=== PATIENT | male | born 1935 | race Two or more races ===

== ENCOUNTER 2019-10-21 01:07 | Inpatient (IN) | payer OTHER ==
[~2019-10-21] VITALS: Ht 182.9 cm; Wt 107.5 kg
[2019-10-21 02:53] LABS: Basophils # (auto) 0 10 ^3/uL (0-0.2); Basophils % (auto) 0.5 % (0.0-2.0); Eosinophils # (auto) 0 10 ^3/uL (0-0.8); Hematocrit 33.7 % (41.0-53.0); Hemoglobin 11.4 g/dL (13.5-17.5); Lymphocytes # (auto) 0.7 10 ^3/uL (0.4-5.4); Lymphocytes % (auto) 9.3 % (10.0-50.0); Mean Corpuscular Hemoglobin 33.7 pg (28.0-32.0); Mean Corpuscular Hgb Conc. 33.7 g/dL (32.0-36.0); Mean Corpuscular Volume 99.9 fL (80.0-100.0); Monocytes # (auto) 0.4 10 ^3/uL (0-1.3); Monocytes % (auto) 5.7 % (0.0-12.0); Neutrophils # (auto) 6.5 10 ^3/uL (1.6-8.6); Neutrophils % (auto) 84.5 % (37.0-80.0); Nucleated Red Blood Cells % 0.1 %; Platelet Count (auto) 230 10^3/uL (140-450); Red Blood Cells 3.37 10^6/uL (4.5-5.90); Red Cell Distribution Width 19.3 % (11.8-14.3); White Blood Cell 7.7 10^3/uL (4.4-10.8)
[2019-10-21 03:04] LABS: Albumin 2.6 g/dL (3.4-5.0); Calcium 8.7 mg/dL (8.5-10.1); Potassium 3.4 mmol/L (3.5-5.1)
[2019-10-21 03:07] LABS: BUN/Creatinine Ratio 10.6; Bilirubin, Total 1.6 mg/dL (0.2-1.0); Total Protein 7.1 g/dL (6.4-8.2)
[2019-10-21 03:45] LABS: Lactic Acid w/Reflex 2.2 mmol/L (0.4-2.0)
[2019-10-21] MEDS ORDERED: SODIUM CHLORIDE 0.9% 500 ML IV ONE (04:15)
[2019-10-21 04:36] LABS: Urine Bacteria FEW /hpf (None Seen); Urine Blood Negative /uL (Negative); Urine Hyaline Cast FEW /lpf (0 - 2); Urine Specific Gravity 1.014 (1.001-1.035); Urine WBC 9 /hpf (0 - 3)
[2019-10-21] MEDS ORDERED: metroNIDAZOLE 500MG/100ML 100 ML IV ONE (04:45)
[2019-10-21] MEDS ORDERED: CIPROFLOXACIN 400MG/200ML 200 ML IV ONE (04:45)
[2019-10-21] MEDS ORDERED: MORPHINE SULFATE 4 MG/ML SYR/VIAL IV ONE (05:15)
[2019-10-21] MEDS ORDERED: ONDANSETRON HCL 4 MG/2 ML VIAL IV ONE (05:15)
[2019-10-21] MEDS ORDERED: MORPHINE SULFATE 4 MG/ML SYR/VIAL IV PRN (06:00)
[2019-10-21] MEDS: metroNIDAZOLE 500MG/100ML 100 ML IV SCH ×3 (06:00→22:27)
[2019-10-21] MEDS ORDERED: NITROGLYCERIN 0.4 MG SL TAB SL PRN (06:00)
[2019-10-21] MEDS ORDERED: MORPHINE SULF INJ 2 MG/ML SYRINGE 1ML IV PRN ×2 (06:00→08:00)
[2019-10-21] MEDS ORDERED: hydrALAZINE HCL 20 MG/ML VL IV PRN (06:00)
[2019-10-21] MEDS ORDERED: DEXTROSE (50%) 50ML SYRG IV PRN (06:00)
[2019-10-21] MEDS ORDERED: SODIUM CHLORIDE 0.9% 1,000 ML IV SCH (06:00)
[2019-10-21] MEDS ORDERED: ONDANSETRON HCL 4 MG/2 ML VIAL IV PRN (06:00)
[2019-10-21] MEDS: InsuLIN REG 1unit/0.01ml Soln (100units/ml) SC SCH ×3 (06:51→17:41)
[2019-10-21] MEDS: ACCU-CHEK COMFORT CURVE STRIP VI SCH ×3 (06:52→17:40)
[2019-10-21] MEDS ORDERED: PROMETHAZINE HCL 25 MG/ML 1ML IV ONE (07:00)
[2019-10-21] MEDS ORDERED: POTA10TA75 (08:13)
[2019-10-21] MEDS ORDERED: HYDR10TA26 (08:13)
[2019-10-21] MEDS ORDERED: GLIP2.5T28 (08:13)
[2019-10-21] MEDS ORDERED: LEV88T (08:13)
[2019-10-21] MEDS ORDERED: AMLO5TAB15 (08:13)
[2019-10-21] MEDS ORDERED: ATOR20TA50 (08:13)
[2019-10-21] MEDS ORDERED: FURO40TA4 (08:13)
[2019-10-21] MEDS ORDERED: PANT40T (08:13)
[2019-10-21] MEDS ORDERED: LACT10SO3 (08:13)
[2019-10-21 09:36] VITALS: BP 153/60
[2019-10-21] MEDS: PANTOPRAZOLE 40 MG/10 ML VIAL INJ IV SCH (10:29)
[2019-10-21] MEDS: cefTRIAXone 1GM/50ML D5W 50 ML IV SCH (10:29)
[2019-10-21] MEDS ORDERED: GASTROGRAFIN 120 ML SOL ONE (10:56)
[2019-10-21 11:37] LABS: Phosphorus 3.2 mg/dL (2.5-4.90)
[2019-10-21] MEDS: D5W/LACTATED RINGERS 1,000 ML IV SCH (13:36)
[2019-10-21 16:38] VITALS: BP 156/50
[2019-10-21] MEDS ORDERED: BISACODYL 10 MG RECT SUPP PR ONE (18:45)
[2019-10-21 21:00] VITALS: BP 150/57
[2019-10-22] MEDS: ACCU-CHEK COMFORT CURVE STRIP VI SCH ×4 (00:46→23:32)
[2019-10-22 05:00] VITALS: BP 142/56
[2019-10-22] MEDS: metroNIDAZOLE 500MG/100ML 100 ML IV SCH (05:40)
[2019-10-22] MEDS: InsuLIN REG 1unit/0.01ml Soln (100units/ml) SC SCH ×4 (05:40→23:32)
[2019-10-22] MEDS: D5W/LACTATED RINGERS 1,000 ML IV SCH (05:40)
[2019-10-22 07:54] LABS: Protein, Urine 218.5 mg/dL (0.0-11.9)
[2019-10-22 08:00] VITALS: BP 140/65
[2019-10-22 08:22] LABS: Basophils # (auto) 0 10 ^3/uL (0-0.2); Basophils % (auto) 0.2 % (0.0-2.0); Eosinophils # (auto) 0 10 ^3/uL (0-0.8); Eosinophils % (auto) 0.1 % (0.0-7.0); Hematocrit 32.3 % (41.0-53.0); Hemoglobin 10.8 g/dL (13.5-17.5); Lymphocytes # (auto) 1.3 10 ^3/uL (0.4-5.4); Lymphocytes % (auto) 15.1 % (10.0-50.0); Mean Corpuscular Hemoglobin 33.7 pg (28.0-32.0); Mean Corpuscular Hgb Conc. 33.6 g/dL (32.0-36.0); Mean Corpuscular Volume 100.3 fL (80.0-100.0); Monocytes % (auto) 11.1 % (0.0-12.0); Neutrophils # (auto) 6.4 10 ^3/uL (1.6-8.6); Neutrophils % (auto) 73.5 % (37.0-80.0); Nucleated Red Blood Cells % 0.1 %; Platelet Count (auto) 216 10^3/uL (140-450); Red Blood Cells 3.22 10^6/uL (4.5-5.90); Red Cell Distribution Width 19.5 % (11.8-14.3); White Blood Cell 8.7 10^3/uL (4.4-10.8)
[2019-10-22 08:43] LABS: INR 1.34 (0.9-1.15); Partial Thromboplastin Time 37.4 sec (23.64-32.05)
[2019-10-22 08:45] LABS: Albumin 2.5 g/dL (3.4-5.0); Calcium 8.5 mg/dL (8.5-10.1); Potassium 3.4 mmol/L (3.5-5.1)
[2019-10-22 08:49] LABS: BUN/Creatinine Ratio 10.2; Bilirubin, Total 1.2 mg/dL (0.2-1.0); Total Protein 6.8 g/dL (6.4-8.2)
[2019-10-22] MEDS: cefTRIAXone 1GM/50ML D5W 50 ML IV SCH (08:53)
[2019-10-22] MEDS: PANTOPRAZOLE 40 MG/10 ML VIAL INJ IV SCH (08:53)
[2019-10-22] MEDS ORDERED: POTASSIUM CHL 20MEQ/100ML 100 ML IV ONE (09:15)
[2019-10-22 13:00] VITALS: BP 150/70
[2019-10-22] MEDS: D5W/SOD CHL 0.45% 1,000 ML IV SCH ×2 (13:38→19:30)
[2019-10-22 17:00] VITALS: BP 143/53
[2019-10-22 21:08] VITALS: BP 158/75
[2019-10-22 23:30] VITALS: BP 167/80
[2019-10-23] VITALS (76 sets, daily range): BP systolic 86–159; BP diastolic 28–85
[2019-10-23] MEDS: D5W/SOD CHL 0.45% 1,000 ML IV SCH ×3 (03:23→19:00)
[2019-10-23] MEDS: InsuLIN REG 1unit/0.01ml Soln (100units/ml) SC SCH ×3 (05:16→18:00)
[2019-10-23] MEDS: ACCU-CHEK COMFORT CURVE STRIP VI SCH ×3 (05:17→18:08)
[2019-10-23 06:07] LABS: Albumin 2.7 g/dL (3.4-5.0); BUN/Creatinine Ratio 10.2; Calcium 8.6 mg/dL (8.5-10.1)
[2019-10-23 06:09] LABS: Bilirubin, Total 1.2 mg/dL (0.2-1.0); Total Protein 7.3 g/dL (6.4-8.2)
[2019-10-23] MEDS ORDERED: ROCURONIUM 10MG/ML 10ML VIAL IV ONE (07:20)
[2019-10-23] MEDS ORDERED: ETOMIDATE (2MG/ML) 20ML VIAL IV ONE (07:20)
[2019-10-23] MEDS ORDERED: SUCCINYLCHOLINE CHLORIDE 20 MG/ML 10ML VIAL IV ONE (07:20)
[2019-10-23] MEDS ORDERED: MIDAZOLAM HCL 5 MG/ML-1ML VIAL ONE (07:35)
[2019-10-23] MEDS ORDERED: MIDAZOLAM HCL 5 MG/ML-1ML VIAL IV ONE (07:45)
[2019-10-23] MEDS: MIDAZOLAM DRIP 50 mg/50mL 50 ML IV SCH ×3 (07:45→22:01)
[2019-10-23] MEDS ORDERED: MIDAZOLAM DRIP 50 mg/50mL 50 ML IV ONE (07:45)
[2019-10-23 09:26] LABS: Basophils # (auto) 0 10 ^3/uL (0-0.2); Eosinophils # (auto) 0 10 ^3/uL (0-0.8); Lymphocytes # (auto) 0.7 10 ^3/uL (0.4-5.4); Monocytes # (auto) 1.3 10 ^3/uL (0-1.3); Neutrophils # (auto) 7.9 10 ^3/uL (1.6-8.6)
[2019-10-23 09:27] LABS: Basophils % (auto) 0.3 % (0.0-2.0); Hematocrit 33.8 % (41.0-53.0); Hemoglobin 11.3 g/dL (13.5-17.5); Lymphocytes % (auto) 6.8 % (10.0-50.0); Mean Corpuscular Hemoglobin 33.7 pg (28.0-32.0); Mean Corpuscular Hgb Conc. 33.4 g/dL (32.0-36.0); Mean Corpuscular Volume 100.9 fL (80.0-100.0); Monocytes % (auto) 13.5 % (0.0-12.0); Neutrophils % (auto) 79.4 % (37.0-80.0); Platelet Count (auto) 234 10^3/uL (140-450); Red Blood Cells 3.35 10^6/uL (4.5-5.90); White Blood Cell 9.9 10^3/uL (4.4-10.8)
[2019-10-23 09:29] LABS: Red Cell Distribution Width 20.2 % (11.8-14.3)
[2019-10-23 09:47] LABS: Albumin 2.5 g/dL (3.4-5.0); BUN/Creatinine Ratio 9.9; Calcium 8.5 mg/dL (8.5-10.1)
[2019-10-23 09:50] LABS: Bilirubin, Total 1.2 mg/dL (0.2-1.0); Total Protein 6.7 g/dL (6.4-8.2)
[2019-10-23 09:58] LABS: Lactic Acid w/Reflex 6.7 mmol/L (0.4-2.0)
[2019-10-23] MEDS: POTASSIUM CHL 20MEQ/100ML 100 ML IV SCH ×2 (11:15→13:04)
[2019-10-23] MEDS: PANTOPRAZOLE 40 MG/10 ML VIAL INJ IV SCH (11:15)
[2019-10-23] MEDS: PROPOFOL 100 ML IV SCH ×2 (11:46→22:00)
[2019-10-23] MEDS: metroNIDAZOLE 500MG/100ML 100 ML IV SCH ×2 (13:38→21:37)
[2019-10-23] MEDS: cefTRIAXone 1GM/50ML D5W 50 ML IV SCH (13:38)
[2019-10-23] MEDS ORDERED: NEOMYCIN SULFATE 500 MG TAB PO ONE (14:00)
[2019-10-23] MEDS ORDERED: LACTULOSE 20Gm/30ML SOLN PR ONE (14:15)
[2019-10-23 14:24] LABS: INR 1.52 (0.9-1.15)
[2019-10-23] MEDS: LACTULOSE 20Gm/30ML SOLN PO SCH ×3 (15:33→21:37)
[2019-10-23] MEDS: fentaNYL Drip 2500mCg/250mlNS 250 ML IV SCH (18:08)
[2019-10-23] MEDS: NOREPINEPHRINE 8 MG/250ML KIT 250 ML IV SCH (20:46)
[2019-10-24] VITALS (100 sets, daily range): BP systolic 86–146; BP diastolic 34–53
[2019-10-24] MEDS: InsuLIN REG 1unit/0.01ml Soln (100units/ml) SC SCH ×4 (00:26→18:00)
[2019-10-24] MEDS: ACCU-CHEK COMFORT CURVE STRIP VI SCH ×4 (00:27→18:28)
[2019-10-24] MEDS: D5W/SOD CHL 0.45% 1,000 ML IV SCH ×2 (02:09→08:28)
[2019-10-24] MEDS: PROPOFOL 100 ML IV SCH ×2 (02:09→23:05)
[2019-10-24] MEDS: LACTULOSE 20Gm/30ML SOLN PO SCH ×4 (02:15→18:29)
[2019-10-24 05:11] LABS: Basophils # (auto) 0 10 ^3/uL (0-0.2); Basophils % (auto) 0.1 % (0.0-2.0); Eosinophils # (auto) 0 10 ^3/uL (0-0.8); Hematocrit 28.3 % (41.0-53.0); Monocytes % (auto) 5.5 % (0.0-12.0); Red Blood Cells 2.78 10^6/uL (4.5-5.90)
[2019-10-24 05:13] LABS: Hemoglobin 9.5 g/dL (13.5-17.5); Lymphocytes # (auto) 0.8 10 ^3/uL (0.4-5.4); Lymphocytes % (auto) 4.2 % (10.0-50.0); Mean Corpuscular Hemoglobin 34.3 pg (28.0-32.0); Mean Corpuscular Hgb Conc. 33.7 g/dL (32.0-36.0); Mean Corpuscular Volume 101.8 fL (80.0-100.0); Neutrophils # (auto) 16.9 10 ^3/uL (1.6-8.6); Neutrophils % (auto) 90.2 % (37.0-80.0); Nucleated Red Blood Cells % 0.1 %; Platelet Count (auto) 193 10^3/uL (140-450); White Blood Cell 18.8 10^3/uL (4.4-10.8)
[2019-10-24 05:18] LABS: Red Cell Distribution Width 20.9 % (11.8-14.3)
[2019-10-24 05:23] LABS: Calcium 7.6 mg/dL (8.5-10.1); Potassium 3.5 mmol/L (3.5-5.1)
[2019-10-24 05:24] LABS: Lactic Acid w/Reflex 2.2 mmol/L (0.4-2.0)
[2019-10-24 05:29] LABS: Albumin 2.2 g/dL (3.4-5.0); BUN/Creatinine Ratio 10.5; Bilirubin, Total 0.9 mg/dL (0.2-1.0); Total Protein 5.8 g/dL (6.4-8.2)
[2019-10-24] MEDS: metroNIDAZOLE 500MG/100ML 100 ML IV SCH ×3 (06:15→20:50)
[2019-10-24] MEDS: THIAMINE 100mg/ml INJ (200mg/2ml VIAL) IV SCH (09:41)
[2019-10-24] MEDS: cefTRIAXone 1GM/50ML D5W 50 ML IV SCH (09:41)
[2019-10-24] MEDS ORDERED: POTASSIUM CHL 20MEQ/100ML 200 ML IV ONE (09:58)
[2019-10-24] MEDS: PANTOPRAZOLE 40 MG/10 ML VIAL INJ IV SCH (10:13)
[2019-10-24] MEDS ORDERED: ALBUMIN 25% 100 ML IV SCH (10:30)
[2019-10-24] MEDS: MIDODRINE HCL 10 MG TAB PO SCH ×2 (12:56→17:40)
[2019-10-24] MEDS: POTASSIUM CHL 20MEQ/100ML 100 ML IV SCH ×2 (13:00→13:42)
[2019-10-24] MEDS: fentaNYL Drip 2500mCg/250mlNS 250 ML IV SCH (13:00)
[2019-10-24] MEDS ORDERED: TPN PER PHARMACY 0 ML IV SCH (14:15)
[2019-10-24] MEDS: ALBUMIN 25% 100 ML IV SCH (14:34)
[2019-10-24] MEDS: OCTREOTIDE ACETATE 100 MCG/ML VL SUBCUT SCH ×2 (14:52→20:51)
[2019-10-24] MEDS ORDERED: DEXTROSE (50%) 50ML SYRG IV SCH (18:00)
[2019-10-24] MEDS ORDERED: AMINO ACID INFUSION IN D5W 2,000 ML IV NR (20:00)
[2019-10-24] MEDS: NOREPINEPHRINE 8 MG/250ML KIT 250 ML IV SCH (20:46)
[2019-10-25] VITALS (92 sets, daily range): BP systolic 111–149; BP diastolic 37–59
[2019-10-25] MEDS: LACTULOSE 20Gm/30ML SOLN PO SCH ×3 (03:19→18:37)
[2019-10-25 04:17] LABS: Basophils # (auto) 0 10 ^3/uL (0-0.2); Eosinophils # (auto) 0 10 ^3/uL (0-0.8); Eosinophils % (auto) 0.4 % (0.0-7.0); Hemoglobin 8.6 g/dL (13.5-17.5); Neutrophils # (auto) 8.6 10 ^3/uL (1.6-8.6)
[2019-10-25 04:21] LABS: Basophils % (auto) 0.2 % (0.0-2.0); Hematocrit 25.5 % (41.0-53.0); Lymphocytes # (auto) 1.6 10 ^3/uL (0.4-5.4); Lymphocytes % (auto) 13.9 % (10.0-50.0); Mean Corpuscular Hgb Conc. 33.8 g/dL (32.0-36.0); Mean Corpuscular Volume 100.7 fL (80.0-100.0); Monocytes # (auto) 1.1 10 ^3/uL (0-1.3); Monocytes % (auto) 9.6 % (0.0-12.0); Neutrophils % (auto) 75.9 % (37.0-80.0); Platelet Count (auto) 141 10^3/uL (140-450); Red Blood Cells 2.53 10^6/uL (4.5-5.90); Red Cell Distribution Width 19.9 % (11.8-14.3); White Blood Cell 11.4 10^3/uL (4.4-10.8)
[2019-10-25 04:38] LABS: Potassium 3.3 mmol/L (3.5-5.1)
[2019-10-25 04:45] LABS: Albumin 2.3 g/dL (3.4-5.0); BUN/Creatinine Ratio 13.1; Bilirubin, Total 0.8 mg/dL (0.2-1.0); Calcium 7.8 mg/dL (8.5-10.1); Magnesium 2.1 mg/dL (1.6-2.6); Total Protein 5.6 g/dL (6.4-8.2)
[2019-10-25 04:47] LABS: Phosphorus 3.2 mg/dL (2.5-4.90)
[2019-10-25] MEDS: metroNIDAZOLE 500MG/100ML 100 ML IV SCH ×2 (05:48→16:28)
[2019-10-25] MEDS: MIDODRINE HCL 10 MG TAB PO SCH ×3 (05:49→17:41)
[2019-10-25] MEDS: OCTREOTIDE ACETATE 100 MCG/ML VL SUBCUT SCH ×2 (05:50→16:30)
[2019-10-25] MEDS: ACCU-CHEK COMFORT CURVE STRIP VI SCH ×4 (05:50→18:44)
[2019-10-25] MEDS: InsuLIN REG 1unit/0.01ml Soln (100units/ml) SC SCH ×4 (05:51→18:44)
[2019-10-25] MEDS: POTASSIUM CHL 20MEQ/100ML 100 ML IV SCH ×2 (06:00→07:45)
[2019-10-25] MEDS: MIDAZOLAM DRIP 50 mg/50mL 50 ML IV SCH (07:45)
[2019-10-25 10:56] LABS: Pre Albumin 6.6 mg/dL (20.0-40.0)
[2019-10-25] MEDS: cefTRIAXone 1GM/50ML D5W 50 ML IV SCH (11:31)
[2019-10-25] MEDS: PANTOPRAZOLE 40 MG/10 ML VIAL INJ IV SCH (11:31)
[2019-10-25] MEDS: THIAMINE 100mg/ml INJ (200mg/2ml VIAL) IV SCH (11:31)
[2019-10-25] MEDS ORDERED: FUROSEMIDE 40 MG/4 ML VIAL IV ONE (12:00)
[2019-10-25] MEDS: ALBUMIN 25% 100 ML IV SCH (16:28)
[2019-10-25] MEDS: fentaNYL Drip 2500mCg/250mlNS 250 ML IV SCH (16:58)
[2019-10-25] MEDS ORDERED: TPN PER PHARMACY IV NR ×8 (20:00)
[2019-10-25] MEDS: NOREPINEPHRINE 8 MG/250ML KIT 250 ML IV SCH (20:46)
[2019-10-26] VITALS (78 sets, daily range): BP systolic 98–157; BP diastolic 39–63
[2019-10-26] MEDS: metroNIDAZOLE 500MG/100ML 100 ML IV SCH ×2 (00:48→06:06)
[2019-10-26] MEDS: OCTREOTIDE ACETATE 100 MCG/ML VL SUBCUT SCH ×2 (00:49→06:07)
[2019-10-26] MEDS: InsuLIN REG 1unit/0.01ml Soln (100units/ml) SC SCH ×3 (00:57→12:10)
[2019-10-26] MEDS: LACTULOSE 20Gm/30ML SOLN PO SCH ×2 (02:02→10:00)
[2019-10-26 04:57] LABS: Albumin 2.6 g/dL (3.4-5.0); Calcium 8.1 mg/dL (8.5-10.1); Potassium 3.2 mmol/L (3.5-5.1)
[2019-10-26 05:00] LABS: BUN/Creatinine Ratio 16.2
[2019-10-26 05:02] LABS: Magnesium 2.3 mg/dL (1.6-2.6); Phosphorus 3.9 mg/dL (2.5-4.90)
[2019-10-26] MEDS: MIDODRINE HCL 10 MG TAB PO SCH ×2 (06:00→12:00)
[2019-10-26] MEDS: ACCU-CHEK COMFORT CURVE STRIP VI SCH ×3 (06:04→12:07)
[2019-10-26] MEDS: MIDAZOLAM DRIP 50 mg/50mL 50 ML IV SCH (07:45)
[2019-10-26] MEDS ORDERED: FUROSEMIDE 40 MG/4 ML VIAL IV ONE (09:15)
[2019-10-26] MEDS: PANTOPRAZOLE 40 MG/10 ML VIAL INJ IV SCH (09:19)
[2019-10-26] MEDS: cefTRIAXone 1GM/50ML D5W 50 ML IV SCH (09:20)
[2019-10-26] MEDS: THIAMINE 100mg/ml INJ (200mg/2ml VIAL) IV SCH (09:20)
[2019-10-26] MEDS: POTASSIUM CHL 20MEQ/100ML 100 ML IV SCH ×2 (10:04→12:00)
[2019-10-26] MEDS: PROPOFOL 100 ML IV SCH (10:39)
[2019-10-26] MEDS ORDERED: LORazepam 2MG/ML-1ML VIAL IV PRN (15:30)
[2019-10-26] MEDS: LORazepam 2MG/ML-1ML VIAL IV PRN ×2 (15:55→23:13)
[2019-10-26] MEDS: ALBUMIN 25% 100 ML IV SCH (16:28)
[2019-10-26] MEDS ORDERED: TPN PER PHARMACY IV NR ×8 (20:00)
[2019-10-26] MEDS: MORPHINE SULF INJ 2 MG/ML SYRINGE 1ML IV PRN (21:15)
[2019-10-27] MEDS: MORPHINE SULF INJ 2 MG/ML SYRINGE 1ML IV PRN (01:21)
[2019-10-27 05:00] VITALS: BP 128/62
[2019-10-27 09:01] VITALS: BP 135/56
[2019-10-27 13:00] VITALS: BP 136/54
[2019-10-27 13:47] VITALS: BP 134/54
[2019-10-27 16:17] VITALS: BP 117/52
== END 2019-10-27 17:37 | disposition hospice, home (50) | DRG 388 ==
LOC: EDBD 01:07 → ER 01:09 → TELE 01:10 → TELE-WESTW 07:51 → ICU WEST 10-23 06:55 → TELE-CENTR 10-26 22:12
PROVIDERS: ADMIT Nurse Practitioner; ATTEND Hospitalist
PROC: 02HV33Z Insertion of Infusion Device into Superior Vena Cava, Percutaneous Approach (ICD-10-PCS; principal; 2019-10-23)
PROC: B548ZZA Ultrasonography of Superior Vena Cava, Guidance (ICD-10-PCS; 2019-10-23)
PROC: 5A1945Z Respiratory Ventilation, 24-96 Consecutive Hours (ICD-10-PCS; 2019-10-23)
PROC: 0BH17EZ Insertion of Endotracheal Airway into Trachea, Via Natural or Artificial Opening (ICD-10-PCS; 2019-10-23)
DX: K56.600 Partial intestinal obstruction, unspecified as to cause (principal); J96.01 Acute respiratory failure with hypoxia; K76.7 Hepatorenal syndrome; G93.41 Metabolic encephalopathy; G93.6 Cerebral edema; N13.6 Pyonephrosis; N17.9 Acute kidney failure, unspecified; D68.9 Coagulation defect, unspecified; N39.0 Urinary tract infection, site not specified; N18.4 Chronic kidney disease, stage 4 (severe); K72.90 Hepatic failure, unspecified without coma; D64.9 Anemia, unspecified; E03.9 Hypothyroidism, unspecified; E11.22 Type 2 diabetes mellitus with diabetic chronic kidney disease; I12.9 Hypertensive chronic kidney disease with stage 1 through stage 4 chronic kidney disease, or unspecified chronic kidney disease; I35.0 Nonrheumatic aortic (valve) stenosis; J44.9 Chronic obstructive pulmonary disease, unspecified; K74.60 Unspecified cirrhosis of liver; K75.81 Nonalcoholic steatohepatitis (NASH); N18.9 Chronic kidney disease, unspecified; N40.0 Benign prostatic hyperplasia without lower urinary tract symptoms; N13.9 Obstructive and reflux uropathy, unspecified; F17.200 Nicotine dependence, unspecified, uncomplicated; E87.6 Hypokalemia; D72.829 Elevated white blood cell count, unspecified; Z66 Do not resuscitate; K57.90 Diverticulosis of intestine, part unspecified, without perforation or abscess without bleeding; Z51.5 Encounter for palliative care; K52.9 Noninfective gastroenteritis and colitis, unspecified; Z79.899 Other long term (current) drug therapy; Z79.84 Long term (current) use of oral hypoglycemic drugs
CPT/HCPCS: 36415; 36600; 70450; 71045; 74018; 74176; 74250; 80053; 81001; 82040; 82140; 82150; 82306; 82570; 82805; 82962; 83605; 83690; 83735; 83880; 83970; 84100; 84132; 84156; 84300; 84478; 84550; 85025; 85610; 85730; 86850; 86900; 86901; 87040; 87070; 87081; 87086; 87205; 93005; 94002; 94003; 95819; 96365; 96366; 96368; 96375; 97163; A4618; C9113; G0378; J0330; J0696; J1815; J2250; J2405; J2704; J3480; J3490; P9047